=== PATIENT | female | born 1960 | race Asian ===

== ENCOUNTER 2018-09-19 07:50 | Day surgery (SDC) | payer OTHER ==
[2018-09-19 09:19] LABS: ADD MAN DIFF? NO
[2018-09-19 09:21] LABS: BASOPHIL # 0.1 10^3/ul (0.0-0.1); BASOPHILS % 0.9 % (0.0-2.0); EOSINOPHILS # 0.8 10^3/ul (0.0-0.5); EOSINOPHILS % 8.2 % (0.0-7.0); HEMATOCRIT 37.1 % (37.0-47.0); HEMOGLOBIN 11.3 g/dl (12.0-16.0); LYMPHOCYTES # 1.4 10^3/ul (0.8-2.9); LYMPHOCYTES % 14.7 % (15.0-51.0); MEAN CORPUSCULAR HEMOGLOBIN 29.7 pg (29.0-33.0); MEAN CORPUSCULAR HGB CONC 30.5 g/dl (32.0-37.0); MEAN CORPUSCULAR VOLUME 97.4 fl (82.0-101.0); MEAN PLATELET VOLUME 9.5 fl (7.4-10.4); MONOCYTES % 10.2 % (0.0-11.0); NEUTROPHIL # 6.2 10^3/ul (1.6-7.5); NEUTROPHILS % 65.5 % (39.0-77.0); PLATELET COUNT 318 10^3/UL (140-415); RED BLOOD COUNT 3.81 10^6/ul (4.20-5.40); RED CELL DISTRIBUTION WIDTH 14.5 % (11.5-14.5)
[2018-09-19 09:21] LABS: WHITE BLOOD COUNT 9.4 10^3/ul (4.8-10.8)
[2018-09-19 09:46] LABS: INR 0.94; PROTIME 12.7 Sec (11.9-14.9)
[2018-09-19 09:48] LABS: ALBUMIN 4.3 g/dl (3.3-4.9); ALBUMIN/GLOBULIN RATIO 1.22; ANION GAP 16 (5-13); BILIRUBIN,INDIRECT 0.3 mg/dl (0-1.1); BILIRUBIN,TOTAL 0.3 mg/dl (0.2-1.3); CALCIUM 9.9 mg/dl (8.4-10.2); CARBON DIOXIDE 25 mmol/L (21-31); CHLORIDE 98 mmol/L (97-110); Estimated GFR 5 mL/min (>60); GLUCOSE 144 mg/dl (70-220); POTASSIUM 4.3 mmol/L (3.5-5.1); SODIUM 139 mmol/L (135-144); TOTAL PROTEIN 7.8 g/dl (6.1-8.1)
[2018-09-19 09:55] LABS: BLOOD UREA NITROGEN 39 mg/dl (7-20); CREATININE 7.88 mg/dl (0.44-1.00)
[2018-09-19 09:56] LABS: ALANINE AMINOTRANSFERASE 8 IU/L (13-69); ASPARTATE AMINO TRANSFERASE 11 IU/L (15-46)
[2018-09-19 09:57] LABS: ALKALINE PHOSPHATASE 156 IU/L (42-121)
[2018-09-19 10:32] LABS: PARTIAL THROMBOPLASTIN TIME 36.6 Sec (23.0-35.0)
[2018-09-19] MEDS ORDERED: GELATIN SIZE 100 SPONGE (12:53)
[2018-09-19] MEDS ORDERED: THROMBIN 5000 UNIT VIAL (12:54)
[2018-09-19] MEDS ORDERED: ALBUTEROL 0.083% (NEB) 2.5 MG/3 ML AMP HHN (13:00)
[2018-09-19] MEDS ORDERED: METOCLOPRAMIDE 10 MG INJ IV (13:00)
[2018-09-19] MEDS ORDERED: DIPHENHYDRAMINE 50 MG INJ IV (13:00)
[2018-09-19] MEDS ORDERED: FENTAnyl 50 MCG/ML VIAL IV ×2 (13:00)
[2018-09-19] MEDS ORDERED: ONDANSETRON 4 MG INJ IV (13:00)
[2018-09-19] MEDS ORDERED: HYDROmorphONE 1 MG/5 ML IV SYRINGE IV ×2 (13:00)
[2018-09-19] MEDS ORDERED: CEFAZOLIN 1 GM INJ (13:20)
[2018-09-19] MEDS ORDERED: ROPIVACAINE 0.5 % 30 ML VIAL (13:22)
[2018-09-19] MEDS ORDERED: MIDAZOLAM 1 MG/ML 2 ML INJ (13:23)
[2018-09-19] MEDS ORDERED: FENTAnyl 50 MCG/ML VIAL (13:46)
[2018-09-19] MEDS: LIDOCAINE 1% (MPF) 30 ML INJ (13:57)
[2018-09-19] MEDS: HEPARIN 1000 UNITS/ML 10 ML INJ (13:57)
[2018-09-19] MEDS ORDERED: PROPOFOL 20 ML (14:18)
== END 2018-09-19 15:50 | disposition home or self-care (01) ==
LOC: SDS 07:50
DX: I13.2 Hypertensive heart and chronic kidney disease with heart failure and with stage 5 chronic kidney disease, or end stage renal disease (principal); I50.9 Heart failure, unspecified; N18.6 End stage renal disease; E11.9 Type 2 diabetes mellitus without complications; E78.5 Hyperlipidemia, unspecified; I25.10 Atherosclerotic heart disease of native coronary artery without angina pectoris; Z86.73 Personal history of transient ischemic attack (TIA), and cerebral infarction without residual deficits
CPT/HCPCS: 36821; 71045; 80053; 82962; 85025; 85610; 85730; 93005